=== PATIENT | female | born 2000 | race American Indian/Alaskan Native ===

== ENCOUNTER 2019-04-15 17:58 | Emergency (ER) | payer SELFPAY ==
--- NOTE | 2019-04-15 19:34 | Event Note ---
ED Screening Note Date of service: 04/15/19 Time: 19:31 ED Screening Note: This is a 19 y.o. F. that presents to the ER with left shoulder pain. Patient states she fell with arms stretched out last night. Ice applied last night. This initial assessment/diagnostic orders/clinical plan/treatment(s) is/are subject to change based on patients health status, clinical progression and re- assessment by fellow clinical providers in the ED. Further treatment and workup at subsequent clinical providers discretion. Patient/guardian urged not to elope from the ED as their condition may be serious if not clinically assessed and managed. Initial orders include: XR left shoulder
--- NOTE | 2019-04-15 21:37 | XRay Report ---
LEFT SHOULDER 3 VIEW(S) INDICATION / CLINICAL INFORMATION: MAIN: left shoulder pain; pat. fell while running x 1 day; painful when extending arm from body; no p revious injury COMPARISON: None available. FINDINGS: BONES / JOINT(S): No acute fracture or subluxation. No significant arthritis. SOFT TISSUES: No significant abnormality. ADDITIONAL FINDINGS: None. Signer Name: Corey Fuentes MD Signed: 04/15/2019 9:32 PM Workstation Name: [id number]
[2019-04-15] MEDS ORDERED: IBUPROFEN 600 MG TAB PO ONE (22:44)
[2019-04-15 23:15] VITALS: BP 122/73
== END 2019-04-15 23:15 | disposition home or self-care (01) ==
LOC: ED 17:58
DX: M25.512 Pain in left shoulder (principal); W18.39XA Other fall on same level, initial encounter; Y93.89 Activity, other specified; Y92.89 Other specified places as the place of occurrence of the external cause; Y99.8 Other external cause status